=== PATIENT | male | born 1950 | race Hispanic/Latino ===

== ENCOUNTER 2018-03-16 12:54 | Emergency (ER) | payer OTHER ==
[~2018-03-16] VITALS: Ht 172.7 cm; Wt 95.3 kg
[~2018-03-16 12:54] MED LIST: A/B OTIC 54 MG/15 ML OT; ALBUTEROL2.5 MG/3 M INH/SOL; AMLODIPINE BESYL5 M1 PO; AUGMENTIN 875-1 EACH PO; BACTRIM DS 8001 TAB PO; CHERATUSSIN AC118 M1 PO; CIPRO500 M1 PO; CLARINEX 5 MG TA5 MG PO; CLEOCIN HCL300 MG PO; COLCHICINE0.6 M2 PO; DELTASONE20 MG PO; FLAGYL500 MG PO; FLU VACCINE 0.0.5 ML IM; GUAIFENESIN-COD10 ML PO; HARVONI 90-4001 EACH PO; HYDROCHLOROTHIA25 M1 PO; INDOMETHACIN25 M1 PO; KEFLEX500 MG PO; LASIX20 M1 PO; LEVAQUIN500 M1 PO; LEVSIN-SL0.125 MG SL; LISINOPRIL HCTZ1 TAB PO; LISINOPRIL40 M1 PO; MEDROL DOSEPAK1 PAC PO; MEDROL4 M2 PO; METFORMIN HCL500 M3 PO; MULTIVITAMINS1 EAC9 PO; NASONEX0.05 MG/Ac NAS; NORVASC 5MG TAB5 MG PO; Nebulizer machine; OMNICEF300 MG PO; PERCOCET 325 MG1 TA2 PO; PERCOCET 5-3251 EACH PO; PREDNISONE10 M2 PO; PREDNISONE10 MG PO; PREDNISONE20 M1 PO; PROAIR HFA0.09 MG/Ac INH; PROVENTIL HFA6.7 GM INH; Robitussin AC PO; SYMBICORT 160/41 PUF INH; TESSALON PERLE100 M1 PO; VENTOLIN HFA18 GM INH; ZITHROMAX250 M2 PO
--- NOTE | 2018-03-16 13:51 | ED DYSPNEA/ASTHMA COMPLAINT ---
History of Present Illness General Chief Complaint: General Adult Stated Complaint: SWELLING IN ANKLES, FATIGUED, WEAKNESS Source: patient Exam Limitations: no limitations Vital Signs & Intake/Output Vital Signs & Intake/Output Vital Signs Date Time Temp Pulse Resp B/P B/P Pulse O2 O2 Flow FiO2 Mean Ox Delivery Rate 03/16 1749 97.7 88 18 154/70 97 Room Air 03/16 1259 97.1 86 18 164/77 96 Room Air Allergies Coded Allergies: Penicillins (DOES NOT KNOW-MOM TOLD HIM HE HAS ALLERGY 09/16/16) Reconcile Medications Albuterol Sulfate (Proventil Hfa) 90 MCG HFA.AER.AD 2 PUF INH Q4 COUGH/SOB Albuterol Sulfate 2.5 MG/3 ML VIAL.NEB 1 Vial INH/EDUARDO Q4P PRN wheezing Albuterol Sulfate (Ventolin Hfa) 90 MCG HFA.AER.AD 2 PUF INH Q4-6 PRN PRN ASTHMA Amlodipine Besylate 5 MG TABLET 1 TAB PO DAILY BP (Reported) Azithromycin (Zithromax) 250 MG TABLET 1 DP PO AD BRONCHITIS 2 the first day followed by 1 for days 2-5 Codeine Phosphate/Guaifenesi (Cheratussin AC Syrup) 10 MG-100 MG/5 ML LIQUID 5 ML PO Q6PRN PRN COUGH Furosemide (Lasix) 20 MG TABLET 1 TAB PO DAILY PRN LEG SWELLING Hydrochlorothiazide 25 MG TABLET 1 TAB PO DAILY WATER PILL (Reported) Lisinopril 40 MG TABLET 1 TAB PO DAILY BP (Reported) Metformin HCl 500 MG TABLET 1 TAB PO DAILY DM (Reported) Multiple Vitamin (Multivitamins) 1 EACH TABLET 1 TAB PO DAILY SUPPLEMENT ( Reported) Prednisone (Deltasone) 20 MG TABLET 1 TAB PO TID BRONCHIIS Triage Note: REPORTS TO ED FOR EVALUATION OF BILATERAL LOWER EXTREMITIES EDEMA. ALSO REPORTS FATIGUE AND GENERALIZED MALAISE. Triage Nurses Notes Reviewed? yes Onset: Gradual Duration: getting worse Timing: recent history Severity: severe HPI: Patient is a 67-year-old male with a past medical history of type 2 diabetes hypertension and hepatitis C who presented to emergency room with concerns of a one-week history of bilateral pitting leg edema generalized weakness and fatigue and nonproductive cough. Denies any fever chills chest pain arm pain jaw pain nausea vomiting hemoptysis. Denies any exertional chest pain or shortness of breath (Navneet Frank) Past History Travel History Traveled to [place] past 21 day No Medical History Any Pertinent Medical History? 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 No (Navneet Frank) Review of Systems Review of Systems Constitutional: Reports: see HPI. EENTM: Reports: no symptoms. Respiratory: Reports: see HPI. Cardiovascular: Reports: see HPI. GI: Reports: no symptoms. Genitourinary: Reports: no symptoms. Musculoskeletal: Reports: no symptoms. Skin: Reports: no symptoms. Neurological/Psychological: Reports: no symptoms. Hematologic/Endocrine: Reports: no symptoms. Immunologic/Allergic: Reports: no symptoms. All Other Systems: Reviewed and Negative (Navneet Frank) Physical Exam Physical Exam General Appearance: no apparent distress, obese Head: atraumatic Eyes: Bilateral: normal appearance. Ears, Nose, Throat: normal pharynx, normal ENT inspection Neck: normal inspection Respiratory: normal breath sounds, chest non-tender, no respiratory distress Cardiovascular: regular rate/rhythm Gastrointestinal: normal bowel sounds, soft, non-tender Extremities: pedal edema Neurologic/Psych: no motor/sensory deficits, awake Skin: intact, normal color Comments: +2 below the knee bilateral pitting edema Capillary refill less than 2 seconds Pedal pulses +2 Core Measures ACS in differential dx? No CVA/TIA Diagnosis No Sepsis Present: No Sepsis Focused Exam Completed? No (Navneet Frank) Progress Differential Diagnosis: asthma, AMI, CHF, COPD, musculoskeletal pain, pericarditis, pulmonary embolism, pneumonia, pneumothorax, unstable angina Plan of Care: Orders Procedure Date/time Status URINALYSIS 03/16 1617 Complete TROPONIN LEVEL 03/16 1413 Complete EKG 03/16 1410 Active COMPREHENSIVE METABOLIC PANEL 03/16 1300 Complete CBC WITHOUT DIFFERENTIAL 03/16 1300 Complete B-TYPE NATRIURETIC PEP (BNP) 03/16 1300 Complete Laboratory Tests 03/16/18 1618: Urine Color YEL, Urine Clarity CLEAR, Urine pH 6.0, Ur Specific Cedar 1.020, Urine Protein NEG, Urine Ketones NEG, Urine Nitrite NEG, Urine Bilirubin NEG, Urine Urobilinogen 0.2, Ur Leukocyte Esterase NEG, Ur Microscopic EXAM NOT REQUIRED, Urine Hemoglobin NEG, Urine Glucose NEG 03/16/18 1559: Troponin I 0.06 03/16/18 1559: Anion Gap 14, Estimated GFR 55 L, BUN/Creatinine Ratio 15.4, Glucose 81, Calcium 9.7, Total Bilirubin 0.6, AST 25, ALT 33, Alkaline Phosphatase 62, Pro-B -Natriuretic Pept 1160 H, Total Protein 6.8, Albumin 4.1, Globulin 2.7, Albumin /Globulin Ratio 1.5, CBC w Diff NO MAN DIFF REQ, RBC 4.25 L, MCV 90.4, MCH 30.8 , MCHC 34.0, RDW 14.5, MPV 7.7, Gran % 68.5, Lymphocytes % 19.5 L, Monocytes % 10.4 H, Eosinophils % 1.2, Basophils % 0.4, Absolute Granulocytes 6.3, Absolute Lymphocytes 1.8, Absolute Monocytes 1.0 H, Absolute Eosinophils 0.1, Absolute Basophils 0 Patient has been resting her blood bedside no apparent distress denies any chest pain or shortness of breath or dyspnea on exertion no suspicion of pulmonary embolism due to patient's leg swellings, ultrasound was resulted no DVT, I discussed blood work with patient Valentino wrap's were applied to bilateral legs pre-and post-neurovascular was intact Patient was strongly advised to elevate the feet and follow up with cardiology this week Diagnostic Imaging: Viewed by Me: Radiology Read, Ultrasound. Radiology Impression: no acute abnormality, no fracture CXR Impression: no acute abnormality, no infiltrates Initial ED EKG: normal p-waves, normal QRS complex, NSR 69 BPM Comments: PATIENT: RADHA ALVARADO PRESENT AGE: 67 PATIENT ACCOUNT NO: [id number] : 52 LOCATION: [facility] ORDERING PHYSICIAN: Navneet NGUYEN SERVICE DATE: 03/16/18 EXAM TYPE: RAD - XRY-CHEST XRAY, TWO VIEWS EXAMINATION: XR CHEST CLINICAL INFORMATION: Cough, leg swelling COMPARISON: 09/17/2017 chest x-ray TECHNIQUE: 2 views of the chest were obtained. FINDINGS: Slightly hypoventilatory exam. The cardiomediastinal silhouette is normal. No pulmonary venous congestion. Linear densities at the lung bases can represent atelectasis. No focal pulmonary consolidation, pleural effusion or pneumothorax. The visualized bones are unremarkable. IMPRESSION: Mild basilar atelectasis, otherwise no acute cardiopulmonary findings. DICTATED BY: Luis Antonio Del Valle MD DATE/TIME DICTATED:03/16/181544 COOK HELPER:LEODAN DATE/TIME TRANSCRIBED:03/16/181544 PATIENT: RADHA ALVARADO PRESENT AGE: 67 PATIENT ACCOUNT NO: [id number] : 52 LOCATION: [facility] ORDERING PHYSICIAN: Navneet NGUYEN SERVICE DATE: 03/16/18 EXAM TYPE: US - US-EXT BILAT VENOUS DOPPLER EXAMINATION: US TRIPLEX OF LOWER EXTREMITIES, BILATERAL CLINICAL INFORMATION: Bilateral leg swelling COMPARISON: None TECHNIQUE: Color-flow triplex imaging with spectral analysis and compression Doppler were performed on the lower extremities. FINDINGS: Respiratory variation, normal compression and augmented flow are noted throughout the lower extremities. The visualized common femoral vein, superficial femoral vein, profunda femoral vein, popliteal vein and midcalf peroneal and posterior tibial venous segments show no evidence of deep venous thrombosis. There is a 5.4 x 0.9 x 2.1 cm left Monteiro's cyst. IMPRESSION: No evidence of deep venous thrombosis involving the bilateral lower extremities. Left popliteal Monteiro's cyst. DICTATED BY: Luis Antonio Del Valle MD DATE/TIME DICTATED:03/16/181540 COOK HELPER:LEODAN DATE/TIME TRANSCRIBED:03/16/181540 (Leonel NGUYEN,Navneet) Departure Departure Disposition: HOME OR SELF CARE Condition: Stable Clinical Impression Primary Impression: Leg edema Referrals: Bart Machado MD (PCP/Family) Additional Instructions: begin to elevate YOUR feet for swelling, begin using Valentino wrap provided to you in the emergency room for swelling and begin the prescription of Lasix for your swelling. If symptoms worsen or if YOU A develop new concerning symptom return to emergency room. Follow-up on Saturday with your quick print operator Dr. Amos Prescriptions waiting at [facility] Departure Forms: Customer Survey General Discharge Information Prescriptions: Current Visit Scripts Furosemide (Lasix) 1 TAB PO DAILY PRN LEG SWELLING #3 TAB (Navneet Frank) PA/DIGITAL DIRECTOR Co-Sign Statement Statement: ED Attending supervision documentation- x I saw and evaluated the patient. I have also reviewed all the pertinent lab results and diagnostic results. I agree with the findings and the plan of care as documented in the PA's/DIGITAL DIRECTOR's documentation. [] I have reviewed the ED Record and agree with the PA's/DIGITAL DIRECTOR's documentation. [] Additions or exceptions (if any) to the PAs/DIGITAL DIRECTOR's note and plan are summarized below: [] (Alfredito Cardona MD) Critical Care Note Critical Care Note Critical Care Time: non-applicable (Navneet Frank)
--- NOTE | 2018-03-16 15:47 | ULTRASOUND REPORT ---
EXAMINATION: US TRIPLEX OF LOWER EXTREMITIES, BILATERAL CLINICAL INFORMATION: Bilateral leg swelling COMPARISON: None TECHNIQUE: Color-flow triplex imaging with spectral analysis and compression Doppler were performed on the lower extremities. FINDINGS: Respiratory variation, normal compression and augmented flow are noted throughout the lower extremities. The visualized common femoral vein, superficial femoral vein, profunda femoral vein, popliteal vein and midcalf peroneal and posterior tibial venous segments show no evidence of deep venous thrombosis. There is a 5.4 x 0.9 x 2.1 cm left Monteiro's cyst. IMPRESSION: No evidence of deep venous thrombosis involving the bilateral lower extremities. Left popliteal Monteiro's cyst.
--- NOTE | 2018-03-16 15:50 | RADIOLOGY REPORT ---
EXAMINATION: XR CHEST CLINICAL INFORMATION: Cough, leg swelling COMPARISON: 09/17/2017 chest x-ray TECHNIQUE: 2 views of the chest were obtained. FINDINGS: Slightly hypoventilatory exam. The cardiomediastinal silhouette is normal. No pulmonary venous congestion. Linear densities at the lung bases can represent atelectasis. No focal pulmonary consolidation, pleural effusion or pneumothorax. The visualized bones are unremarkable. IMPRESSION: Mild basilar atelectasis, otherwise no acute cardiopulmonary findings.
[2018-03-16 16:17] LABS: ABSOLUTE BASOPHIL COUNT 0 /CUMM (0.0-0.2); ABSOLUTE EOSINOPHIL COUNT 0.1 /CUMM (0.0-0.7); ABSOLUTE GRANULOCYTE CT 6.3 /CUMM (1.4-6.5); ABSOLUTE LYMPH COUNT 1.8 /CUMM (1.2-3.4); BASOPHIL % 0.4 % (0.0-2.0); EOSINOPHIL % 1.2 % (0-5); GRANULOCYTE % 68.5 % (42.2-75.2); HEMATOCRIT 38.4 % (42-52); MEAN CORPUSCULAR HGB 30.8 PG (27.0-31.0); MEAN CORPUSCULAR VOLUME 90.4 FL (80.0-94.0); MEAN PLATELET VOLUME 7.7 FL (7.4-10.4); PLATELET COUNT 298 /CUMM (130-400); RBC DISTRIBUTION WIDTH 14.5 % (11.5-14.5); RED BLOOD CELL CT 4.25 /CUMM (4.70-6.10); WHITE BLOOD CELL COUNT 9.1 /CUMM (4.8-10.8)
[2018-03-16] MEDS ORDERED: LASIX20 M1 PO (17:06)
[2018-03-16 17:49] VITALS: BP 154/70
== END 2018-03-16 17:49 ==
LOC: ERH 12:54
PROVIDERS: Emergency Medicine
DX: R60.0 Localized edema (principal)
CPT/HCPCS: 71046; 81003; 93005; 93010; 93970